=== PATIENT | female | born 1930 | race Caucasian/White ===

== ENCOUNTER 2017-02-19 17:37 | Emergency (ER) | payer OTHER ==
[~2017-02-19] VITALS: Ht 160 cm; Wt 78.0 kg
[2017-02-19 17:57] VITALS: TEMP 36.6; Ht 160 cm; Wt 78.0 kg
--- NOTE | 2017-02-19 18:25 | EMERGENCY ROOM VISIT NOTE ---
History Report prepared by Ryan: Jessica Olivo Under the Supervision of: Dr. Michele Mays D.O. First contact with patient: 18:04 Chief Complaint: SHORTNESS OF BREATH Stated Complaint: SOB,WEAK,BP HIGH Nursing Triage Summary: short of breath all day no cough pt has minimal swelling to legs which is normal for pt headache History of Present Illness The patient is a 87 year old female who presents to the Emergency Room with complaints of persistent lower extremity weakness starting this morning. The patient also complains of shortness of breath starting this morning. She had an onset of her symptoms when she woke up today. As per family member, the patient had a high blood pressure today. She has a history of hypertension and took her blood pressure medication as prescribed without relief. She also complains of a headache radiating from the back of her neck. The patient has chronic lower extremity edema. She currently denies chest pain, abdominal pain, nausea, vomiting, or any other complaints. She denies any recent falls or head trauma. She does not have a history of stroke. She takes a baby aspirin. Source of History: patient, family Onset: this morning Position: other (bilateral lower extremity) Quality: other (weakness) Timing: other (persistent) Associated Symptoms: + SOB, + headache, No abdominal pain, No chest pain, No nausea, No vomiting Review of Systems See HPI for pertinent positives & negatives. A total of 10 systems reviewed and were otherwise negative. Past Medical & Surgical Medical Problems: (1) Diabetes (2) Hypertension (3) Myocardial infarction Surgical Problems: (1) History of hip replacement Family History Patient reports no known family medical history. Social History Smoking Status: Never Smoker Housing Status: lives with family Occupation Status: retired Current/Historical Medications Scheduled Alendronate Sodium (Fosamax), 10 MG PO DAILY Amlodipine Besylate (Norvasc), 1 TAB PO DAILY Aspirin (Aspirin Ec), 81 MG PO DAILY Atorvastatin (Lipitor), 80 MG PO HS Citalopram Hydrobromide (Celexa), 20 MG PO DAILY Furosemide (Lasix), 20 MG PO DAILY Gabapentin (Neurontin), 300 MG PO TID Hydrochlorothiazide (Hydrochlorothiazide), 1 TAB PO DAILY Insulin Isophan/Regular (Novolin 70/30), 16 UNITS SC QAM Insulin Isophan/Regular (Novolin 70/30), 7 UNITS SC QPM Levothyroxine Sodium (Levothyroxine Sodium), 1 TAB PO DAILY Lisinopril (Zestril), 40 MG PO QAM Metformin Hcl (Glucophage), 500 MG PO BID Nitroglycerin (Nitrostat), 0.4 MG UT PRN Scheduled PRN Acetaminophen (Tylenol), 650 MG PO Q4 PRN for Pain or Fever Lorazepam (Ativan), 0.25-0.5 MG PO TID PRN for Anxiety Meclizine HCl (Meclizine HCl), 1 TAB PO TID PRN for Dizziness or Vertigo Tramadol (Ultram), 50 MG PO QID PRN for Pain Allergies Coded Allergies: Iodine (Verified Allergy, Unknown, HIVES, 02/19/17) Sulfa Antibiotics (Verified Allergy, Unknown, RASH, 02/19/17) Physical Exam Vital Signs Date Time Temp Pulse Resp B/P Pulse Ox O2 Delivery O2 Flow Rate FiO2 02/19/17 22:01 53 17 183/61 99 02/19/17 20:10 53 17 188/48 98 Room Air 02/19/17 19:05 54 02/19/17 19:04 53 19 189/70 95 Room Air 02/19/17 18:58 221/81 206/73 232/83 02/19/17 18:36 95 Room Air 02/19/17 17:57 99 Room Air 02/19/17 17:57 36.6 52 20 201/66 99 Room Air Physical Exam GENERAL: Patient is awake, alert, somewhat anxious appearing, does not appear to be in any pain or uncomfortable. EYES: The conjunctivae are clear. The pupils are round and reactive. EARS, NOSE, MOUTH AND THROAT: The nose is without any evidence of any deformity. Mucous membranes are moist tongue is midline NECK: The neck is nontender and supple. RESPIRATORY: Normal respiratory effort is noted there is no evidence of wheezing rhonchi or rales CARDIOVASCULAR: Regular rate and rhythm noted there no murmurs rubs or gallops normal S1 normal S2 GASTROINTESTINAL: The abdomen is soft. Bowel sounds are present in all quadrants. Abdomen is nontender MUSCULOSKELETAL/EXTREMITIES: There is no evidence of gross deformity full range of motion is noted in the hips and shoulders SKIN: There is no obvious evidence of any rash. There are no petechiae, pallor or cyanosis noted. Trace pedal edema bilaterally. NEUROLOGIC: Patient is awake alert and oriented x3 strength is symmetric Medical Decision & Procedures ER Provider Diagnostic Interpretation: X-ray results as stated below per interpretation by me and the radiologist. CHEST ONE VIEW PORTABLE CLINICAL HISTORY: EVALUATE ALTERED MENTAL STATUS/WEAKNESS dyspnea COMPARISON STUDY: No previous studies for comparison. FINDINGS: The bones soft tissues and hemidiaphragms are normal. The cardiomediastinal silhouette is normal. The lungs are clear. The pulmonary vasculature is normal. IMPRESSION: Negative chest. Electronically signed by: Shoaib Ledezma M.D. 02/19/2017 6:25 PM Dictated Date/Time: 02/19/2017 6:[address] results as stated below per my review and radiologist interpretation: HEAD CT NONCONTRAST CT DOSE: 537.48 mGy.cm HISTORY: Mental status change EVALUATE ALTERED MENTAL STATUS/WEAKNESS TECHNIQUE: Multiaxial CT images of the head were performed without the use of intravenous contrast. Comparison: None. Findings: The paranasal sinuses and mastoid air cells are clear. The calvarium and skull base are intact. The ventricles and sulci are within normal limits. There is no mass, hematoma, midline shift, or acute infarct. Impression: No acute intracranial abnormality. Electronically signed by: Shoaib Ledezma M.D. 02/19/2017 7:30 PM Dictated Date/Time: 02/19/2017 7:30 PM Laboratory Results 02/19/17 18:30 Red Blood Count 4.42, Mean Corpuscular Volume 88.9, Mean Corpuscular Hemoglobin 29.4, Mean Corpuscular Hemoglobin Concent 33.1, Mean Platelet Volume 10.7, Neutrophils (%) (Auto) 56.6, Lymphocytes (%) (Auto) 34.3, Monocytes (%) (Auto) 7.2, Eosinophils (%) (Auto) 1.5, Basophils (%) (Auto) 0.3, Neutrophils # (Auto) 3.80, Lymphocytes # (Auto) 2.30, Monocytes # (Auto) 0.48, Eosinophils # (Auto) 0.10, Basophils # (Auto) 0.02 02/19/17 18:30 Test 02/19/17 18:26 02/19/17 18:30 02/19/17 19:11 Bedside Glucose 239 mg/dl (70-90) White Blood Count 6.71 K/uL (4.8-10.8) Red Blood Count 4.42 M/uL (4.2-5.4) Hemoglobin 13.0 g/dL (12.0-16.0) Hematocrit 39.3 % (37-47) Mean Corpuscular Volume 88.9 fL (80-100) Mean Corpuscular Hemoglobin 29.4 pg (25-34) Mean Corpuscular Hemoglobin Concent 33.1 g/dl (32-36) Platelet Count 223 K/uL (130-400) Mean Platelet Volume 10.7 fL (7.4-10.4) Neutrophils (%) (Auto) 56.6 % Lymphocytes (%) (Auto) 34.3 % Monocytes (%) (Auto) 7.2 % Eosinophils (%) (Auto) 1.5 % Basophils (%) (Auto) 0.3 % Neutrophils # (Auto) 3.80 K/uL (1.4-6.5) Lymphocytes # (Auto) 2.30 K/uL (1.2-3.4) Monocytes # (Auto) 0.48 K/uL (0.11-0.59) Eosinophils # (Auto) 0.10 K/uL (0-0.5) Basophils # (Auto) 0.02 K/uL (0-0.2) RDW Standard Deviation 42.5 fL (36.4-46.3) RDW Coefficient of Variation 13.1 % (11.5-14.5) Immature Granulocyte % (Auto) 0.1 % Immature Granulocyte # (Auto) 0.01 K/uL (0.00-0.02) Prothrombin Time 10.8 SECONDS (9.0-12.0) Prothromb Time International Ratio 1.0 (0.9-1.1) Activated Partial Thromboplast Time 28.2 SECONDS (21.0-31.0) Partial Thromboplastin Ratio 1.1 Anion Gap 6.0 mmol/L (3-11) Est Creatinine Clear Calc Drug Dose 23.9 ml/min Estimated GFR () 31.3 Estimated GFR (Non- 27.0 BUN/Creatinine Ratio 30.3 (10-20) Calcium Level 9.3 mg/dl (8.5-10.1) Phosphorus Level 3.5 mg/dl (2.5-4.9) Magnesium Level 2.4 mg/dl (1.8-2.4) Total Bilirubin 0.3 mg/dl (0.2-1) Direct Bilirubin < 0.1 mg/dl (0-0.2) Aspartate Amino Transf (AST/SGOT) 15 U/L (15-37) Alanine Aminotransferase (ALT/SGPT) 20 U/L (12-78) Alkaline Phosphatase 98 U/L (45-117) Total Creatine Kinase 83 U/L (26-192) Creatine Kinase MB 1.6 ng/ml (0.5-3.6) Creatine Kinase MB Ratio 1.9 (0-3.0) Troponin I < 0.015 ng/ml (0-0.045) Pro-B-Type Natriuretic Peptide 252 pg/ml (0-1800) Total Protein 7.8 gm/dl (6.4-8.2) Albumin 4.1 gm/dl (3.4-5.0) Lipase 590 U/L (73-393) Thyroid Stimulating Hormone (TSH) 2.610 uIu/ml (0.300-4.500) Urine Color YELLOW Urine Appearance CLEAR (CLEAR) Urine pH 5.0 (4.5-7.5) Urine Specific Douglas 1.008 (1.000-1.030) Urine Protein NEG (NEG) Urine Glucose (UA) TRACE (NEG) Urine Ketones NEG (NEG) Urine Occult Blood NEG (NEG) Urine Nitrite NEG (NEG) Urine Bilirubin NEG (NEG) Urine Urobilinogen NEG (NEG) Urine Leukocyte Esterase NEG (NEG) Laboratory results per my review. Medications Administered Medications (Trade) Dose Ordered Sig/Brianne Route Start Time Stop Time Status Last Admin Dose Admin Sodium Chloride (Nss 500ml) 500 ml @ 999 mls/hr Q31M STAT IV 02/19/17 19:38 02/19/17 20:08 DC 02/19/17 19:43 999 MLS/HR Acetaminophen (Tylenol Tab) 1,000 mg NOW STAT PO 02/19/17 20:19 02/19/17 20:20 DC 02/19/17 20:53 1,000 MG Amlodipine Besylate (Norvasc Tab) 5 mg NOW ONCE PO 02/19/17 20:45 02/19/17 20:46 DC 02/19/17 20:52 5 MG ECG Indication: weakness Rate (beats per minute): 51 Rhythm: sinus bradycardia Findings: LBBB, other (LVH by voltage criteria; no PVCs) Comparison ECG Date: no prior available ED Course 1803: The patient was evaluated in room A04B. A complete history and physical examination were performed. 1937: Sodium Chloride 500 ml @ 999 mls/hr IV 2019: Tylenol Tab 1000 mg PO 2027: I discussed antihypertensive choices with Dr. Bhatia, from [facility]. Given the patient's follow up appointment is in the morning , we decided to try a different antihypertensive regiment. 2044: Norvasc Tab 5 mg PO 2114: Upon reevaluation, the patient is resting comfortably. I discussed the results and treatment plan with her. She verbalized agreement of the treatment plan. She was discharged home. Medical Decision Prior records/ancillary studies reviewed and summarized above. Nursing notes reviewed. Additional history obtained from family. The patient's history was concerning for weakness. Differential diagnosis: Etiologies such as metabolic, infection, hypo/hyperglycemia, electrolyte abnormalities, cardiac sources, intracerebral event, toxicologic, neurologic, as well as others were entertained. The patient is an 87-year-old female who presented to the emergency department for an evaluation of headache and difficulty breathing. The patient's family members noted that her blood pressure was starting to go up. She normally has very well controlled blood pressure. The patient currently takes an GERRI inhibitor. The patient has been on this medication for quite some time. She was found have an elevation in her creatinine as well as her potassium. The patient was treated with calcium channel mary the emergency Department she was also given a small fluid bolus. I discussed the patient's laboratory and radiographic studies with her. [facility] I felt the patient would require inpatient management but I wanted his opinion about antihypertensive medication for this patient. I do not feel she should still be taking an GERRI inhibitor given her abnormal renal function and her elevated potassium. The patient does have a follow up appointment with her primary care physician tomorrow. The patient was encouraged to continue the other medications as prescribed but stop taking the lisinopril as well as he HCTZ. She was also encouraged to follow-up with her primary care physician as scheduled and return to the emergency department immediately symptoms change worsen or the need arises. Consults Time Called: 2024 Consulting Physician: Dr. Bhatia, from [facility] Returned Call: 2027 I discussed antihypertensive choices with Dr. Bhatia, from [facility]. Given the patient's follow up appointment is in the morning , we decided to try a different antihypertensive regiment. Impression Primary Impression: Hypertension Additional Impressions: Dizziness Headache Acute kidney injury Hyperkalemia Scribe Attestation The scribe's documentation has been prepared under my direction and personally reviewed by me in its entirety. I confirm that the note above accurately reflects all work, treatment, procedures, and medical decision making performed by me. Departure Information Dispostion Home / Self-Care Prescriptions Amlodipine Besylate (NORVASC) 5 Mg Tab 1 TAB PO DAILY, #30 TAB 1 Refill Prov: Michele Mays, 02/19/17 Referrals Arya Dubon M.D. (PCP) Forms HOME CARE DOCUMENTATION FORM, IMPORTANT VISIT INFORMATION Patient Instructions Headache Pain, Hypertension Control, My [facility] Additional Instructions Stop taking your Lisinopril and your hydrochlorothiazide. Start taking the Norvasc tomorrow. Follow-up with your family tomorrow as scheduled. Rest and avoid any strenuous activity. Return to the emergency department immediately if symptoms change worsen or the need arises. Problem Qualifiers Primary Impression: Hypertension Additional Impressions: Headache Headache type: unspecified Headache chronicity pattern: acute headache Intractability: not intractable Qualified Codes: R51 - Headache
[2017-02-19 18:36] VITALS: O2SAT 95
[2017-02-19 18:44] LABS: BASO % 0.3 %; BASO ABS # 0.02 K/uL (0-0.2); COMPLETE YES; EOS % 1.5 %; HEMATOCRIT 39.3 % (37-47); IG% 0.1 %; LYMPH % 34.3 %; MEAN CELL VOLUME 88.9 fL (80-100); MEAN CORPUSCULAR HEMOGLOBIN 29.4 pg (25-34); MEAN CORPUSCULAR HGB CONC 33.1 g/dl (32-36); MEAN PLATELET VOLUME 10.7 fL (7.4-10.4); MONO % 7.2 %; NEUT % 56.6 %; PLATELET COUNT 223 K/uL (130-400); RED BLOOD COUNT 4.42 M/uL (4.2-5.4); WHITE BLOOD COUNT 6.71 K/uL (4.8-10.8)
[2017-02-19 19:07] LABS: ALT/SGPT 20 U/L (12-78); BLOOD UREA NITROGEN 52 mg/dl (7-18); BUN/CREATININE RATIO 30.3 (10-20); CALCIUM 9.3 mg/dl (8.5-10.1); CARBON DIOXIDE 28 mmol/L (21-32); CHLORIDE 103 mmol/L (98-107); GLUCOSE 241 mg/dl (70-99); MAGNESIUM 2.4 mg/dl (1.8-2.4); POTASSIUM 5.2 mmol/L (3.5-5.1); SODIUM 137 mmol/L (136-145)
[2017-02-19 19:09] LABS: PARTIAL THROMBOPLASTIN RATIO 1.1; PROTHROMBIN TIME (PATIENT) 10.8 SECONDS (9.0-12.0)
[2017-02-19 19:16] LABS: ALKALINE PHOSPHATASE 98 U/L (45-117); AST/SGOT 15 U/L (15-37); CKMB/CK RATIO 1.9 (0-3.0); PHOSPHORUS 3.5 mg/dl (2.5-4.9)
--- NOTE | 2017-02-19 19:32 | DIAGNOSTIC IMAGING REPORT ---
HEAD CT NONCONTRAST CT DOSE: 537.48 mGy.cm HISTORY: Mental status change EVALUATE ALTERED MENTAL STATUS/WEAKNESS TECHNIQUE: Multiaxial CT images of the head were performed without the use of intravenous contrast. Comparison: None. Findings: The paranasal sinuses and mastoid air cells are clear. The calvarium and skull base are intact. The ventricles and sulci are within normal limits. There is no mass, hematoma, midline shift, or acute infarct. Impression: No acute intracranial abnormality. Electronically signed by: Shoaib Ledezma M.D. 02/19/2017 7:30 PM Dictated Date/Time: 02/19/2017 7:30 PM
[2017-02-19] MEDS ORDERED: SODIUM CHLORIDE 0.9% 500ML 500 ML IV STA (19:38)
[2017-02-19 19:39] LABS: URINE APPEARANCE CLEAR (CLEAR); URINE BILIRUBIN NEG (NEG); URINE COLOR YELLOW; URINE NITRITE NEG (NEG); URINE SPECIFIC GRAVITY 1.008 (1.000-1.030); UROBILINOGEN NEG (NEG)
[2017-02-19 19:48] LABS: MANUAL MICROSCOPIC REQUIRED? NO; REVIEW REQ? NO
[2017-02-19] MEDS ORDERED: ACETAMINOPHEN 500 MG TAB PO STA (20:19)
[2017-02-19] MEDS ORDERED: AMLODIPINE BESYLATE 5 MG TAB PO ONE (20:45)
[2017-02-19] MEDS ORDERED: AMLO5TAB2 PO (20:47)
[2017-02-19] MEDS ORDERED: FURO-85 PO (21:01)
[2017-02-19] MEDS ORDERED: ACET-1311 PO (21:01)
[2017-02-19] MEDS ORDERED: LEVO75TA5 PO (21:01)
[2017-02-19] MEDS ORDERED: CITA20TA4 PO (21:01)
[2017-02-19] MEDS ORDERED: INSU70IN2 SC ×2 (21:01)
[2017-02-19] MEDS ORDERED: ATOR-26 PO (21:01)
[2017-02-19] MEDS ORDERED: HYDR12.55 PO (21:01)
[2017-02-19] MEDS ORDERED: LISI40TA PO (21:01)
[2017-02-19] MEDS ORDERED: ASPI81TA28 PO (21:01)
[2017-02-19] MEDS ORDERED: MECL1TAB40 PO (21:01)
[2017-02-19] MEDS ORDERED: GABA-113 PO (21:01)
[2017-02-19] MEDS ORDERED: LORA-741 PO (21:01)
[2017-02-19] MEDS ORDERED: CITA20TA9 PO (21:01)
[2017-02-19] MEDS ORDERED: NTRGSL/4 UT (21:01)
[2017-02-19] MEDS ORDERED: ALEN5TAB2 PO (21:01)
[2017-02-19] MEDS ORDERED: GLC/500 PO (21:01)
[2017-02-19] MEDS ORDERED: TRAM-10 PO (21:08)
[2017-02-19 22:01] VITALS: BP 183/61; PULSE 53; O2SAT 99
== END 2017-02-19 22:02 | disposition home or self-care (01) ==
LOC: C.EDB 17:38 → C.EDA 22:02
DX: N17.9 Acute kidney failure, unspecified (principal); I10 Essential (primary) hypertension; R42 Dizziness and giddiness; R51 Headache; E87.5 Hyperkalemia; I44.7 Left bundle-branch block, unspecified; E11.9 Type 2 diabetes mellitus without complications; I25.2 Old myocardial infarction; Z96.649 Presence of unspecified artificial hip joint; Z79.82 Long term (current) use of aspirin; Z79.4 Long term (current) use of insulin; Z79.84 Long term (current) use of oral hypoglycemic drugs; Z79.899 Other long term (current) drug therapy; Z88.2 Allergy status to sulfonamides; Z91.09 Other allergy status, other than to drugs and biological substances

== ENCOUNTER 2017-05-24 16:57 | Emergency (ER) | payer OTHER ==
[~2017-05-24] VITALS: Ht 157.5 cm; Wt 82.4 kg
[~2017-05-24 16:57] MED LIST: ACET-1311 PO; ALEN5TAB2 PO; AMLO5TAB2 PO; ASPI81TA28 PO; ATOR-26 PO; CITA20TA9 PO; FURO-85 PO; GABA-113 PO; GLC/500 PO; HYDR12.55 PO; INSU70IN2 SC; LEVO75TA5 PO; LISI40TA PO; LORA-741 PO; MECL1TAB40 PO; NTRGSL/4 UT; TRAM-10 PO
[2017-05-24 17:05] VITALS: TEMP 36.9; Ht 157.5 cm; Wt 82.4 kg
[2017-05-24] MEDS ORDERED: NVLGI7030 SC ×2 (17:16)
--- NOTE | 2017-05-24 18:01 | DIAGNOSTIC IMAGING REPORT ---
FLUOROSCOPIC IMAGES OF THE LUMBAR SPINE CLINICAL HISTORY: Lower back pain. COMPARISON: None FLUOROSCOPY TIME: FINDINGS: A hip arthroplasty is incidentally noted. Moderate compression deformity of the inferior endplate of T12 is likely chronic. No additional compression fractures are present. There is mild multilevel degenerative disc disease and moderate multilevel facet arthrosis. Extensive vascular calcification of the abdominal aorta is noted. There is no evidence for a bowel obstruction. IMPRESSION: 1. Moderate T12 compression deformity which is age indeterminate although likely chronic. 2. No acute lumbar spine fracture. 3. Mild multilevel degenerative disc disease and moderate multilevel facet arthrosis of the lumbar spine. Electronically signed by: Froylan Dillon M.D. 05/24/2017 6:00 PM Dictated Date/Time: 05/24/2017 5:58 PM
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
[2017-05-24 19:34] VITALS: BP 192/95; PULSE 55; O2SAT 96
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
== END 2017-05-24 19:35 | disposition home or self-care (01) ==
LOC: EDBD 16:57 → C.EDA 16:58
DX: M54.5 Low back pain (principal); V49.40XA Driver injured in collision with unspecified motor vehicles in traffic accident, initial encounter; E11.9 Type 2 diabetes mellitus without complications; I10 Essential (primary) hypertension; I25.2 Old myocardial infarction; Z79.82 Long term (current) use of aspirin; Z79.4 Long term (current) use of insulin

== ENCOUNTER → 2017-07-18 | Outpatient (CLI) | payer OTHER ==
[~2017-07-18] MED LIST changes: -HYDR12.55 PO; -INSU70IN2 SC; -LISI40TA PO; +NVLGI7030 SC
--- NOTE | 2017-07-18 14:12 | DIAGNOSTIC IMAGING REPORT ---
BILATERAL LOWER EXTREMITY VENOUS DOPPLER HISTORY: Short of breath, ELEVATED D DIMER *STAT COMPARISON STUDY: None. FINDINGS: There is normal compressibility, flow, and augmentation within the bilateral lower extremity deep venous systems. IMPRESSION: No DVT within the right or left lower extremity. Electronically signed by: Miguel Angel Mix M.D. 07/18/2017 2:11 PM Dictated Date/Time: 07/18/2017 2:10 PM
--- NOTE | 2017-07-18 15:05 | DIAGNOSTIC IMAGING REPORT ---
LUNG IMAGING VQ CLINICAL HISTORY: 87 years-old Female presenting with SOB, ELEVATED D DIMER *STAT. TECHNIQUE: Immediately following the inhalation of 33 mCi of technetium 99 M DTPA for the ventilation scan and the intravenous administration of 5.1 mCi of technetium 99 M MAA for the perfusion scan, anterior, oblique, lateral, and posterior views of the chest were obtained. Modified PIOPED II criteria were utilized for assessment. COMPARISON: Chest x-ray from 07/17/2017. FINDINGS: Findings are correlated to the negative chest x-ray performed yesterday. Deposition of inhaled radiotracer in the central airways. Perfusion and ventilation to both lungs is preserved. No mismatched defects are identified on this examination. Study is considered within normal limits. IMPRESSION: Normal. Electronically signed by: Arya Ribeiro M.D. 07/18/2017 3:04 PM Dictated Date/Time: 07/18/2017 2:59 PM
== END | disposition home or self-care (01) ==
LOC: C.ULTR 13:28
PROVIDERS: ATTEND Physician Assistant
DX: N18.3 Chronic kidney disease, stage 3 (moderate) (principal); R06.02 Shortness of breath; R79.89 Other specified abnormal findings of blood chemistry